=== PATIENT | male | born 1945 | race Caucasian/White ===

== ENCOUNTER 2023-04-24 10:12 | Outpatient (CLI) | payer MEDICARE, OTHER, SELFPAY | END 2023-04-24 10:13 | disposition home or self-care (01) | LOC: WOUND 10:12 | PROVIDERS: Visit Provider Nurse Practitioner Family | DX: I87.311 Chronic venous hypertension (idiopathic) with ulcer of right lower extremity (principal); L97.212 Non-pressure chronic ulcer of right calf with fat layer exposed; R73.03 Prediabetes; I89.0 Lymphedema, not elsewhere classified | CPT/HCPCS: 99212 ==